=== PATIENT | male | born 1945 | race Asian ===

== ENCOUNTER 2017-01-31 15:07 | Emergency (ER) | payer OTHER ==
[~2017-01-31] VITALS: Ht 182.9 cm; Wt 69.0 kg
[~2017-01-31 15:07] MED LIST: AMLO-145 PO; ASPI325T32 PO; ATOR10TA65 PO; CLOP75TA27 PO; ESCI20TA PO; MULT1TAB73 PO; OMEG500C PO; OMEP40CA6 PO; RAMI2.5C36 PO; RIVA3CAP3 PO; SENN-8 PO; [UNRECOGNIZED DRUG - CODE] PO
[2017-01-31 15:09] VITALS: Ht 182.9 cm; Wt 69.0 kg
[2017-01-31] MEDS ORDERED: ACYC800T57 PO (15:31)
[2017-01-31] MEDS ORDERED: PRED20TA PO (15:31)
[2017-01-31] MEDS ORDERED: TETR15DR12 OP (15:32)
--- NOTE | 2017-01-31 17:38 | ERA ---
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 Patient states that this feels like Lopez's palsy. Patient has not taken any medication to relieve the symptoms. Patient and historian deny any weakness, altered mental status, change in behavior, change in speech, headache, dizziness, fever or meningismus symptoms. Denies diabetes or history of herpes zoster. Nursing notes and other documents have been reviewed and are consistent with the history given. Vaccination status is up-to-date. ROS All systems reviewed and are negative except as per history of present illness. Medications Home Meds Active Scripts Tetrahydrozoline Hcl/Peg's (Eye Drops Moisturizing Rlf) 15 Ml Drops, 15 ML OP Q4 for 28 Days, #1 BOTTLE Prov:J LUIS MCCULLOUGH PA-C 01/31/17 Prednisone* (Prednisone*) 20 Mg Tab, 60 MG PO DAILY for 4 Days, TAB Prov:J LUIS MCCULLOUGH PA-C 01/31/17 Acyclovir* (Zovirax*) 800 Mg Tablet, 800 MG PO 5 TIMES DAILY for 7 Days, TAB Prov:J LUIS MCCULLOUGH PA-C 01/31/17 Reported Medications Atorvastatin Calcium (Atorvastatin Calcium) 10 Mg Tab, 80 MG PO DAILY, TAB 12/08/13 Multivitamins (Daily Vitamin Formula) 1 Udtab Tablet, 1 UDTAB PO DAILY 12/08/13 Clopidogrel Bisulfate (Clopidogrel) 75 Mg Tablet, 75 MG PO DAILY 12/08/13 [place]-3 Fatty Acids (Fish Oil) 500 Mg Capsule.dr, 1000 MG PO DAILY 12/08/13 Omeprazole* (Omeprazole*) 40 Mg Capsule.dr, 20 MG PO DAILY 12/08/13 Aspirin* (Aspirin* EC) 325 Mg Tab, 325 MG PO 04/20/13 Escitalopram Oxalate* (Lexapro*) 20 Mg Tablet, 20 MG PO DAILY 04/20/13 Sennosides/Docusate Sodium* (Senna S*) 1 Tab Tablet, 1 TAB PO DAILY 04/04/13 Multivit, Iron, Min #5, Fa (Strovite Forte Caplet) 1 Tab Tablet, 1 TAB PO DAILY 04/04/13 Ramipril (Ramipril) 2.5 Mg Capsule, 2.5 MG PO DAILY 04/04/13 Rivastigmine Tartrate* (Rivastigmine Tartrate*) 3 Mg Capsule, 3 MG PO DAILY 04/04/13 Amlodipine Besylate* (Amlodipine Besylate*) 5 Mg Tablet, 5 MG PO DAILY 04/04/13 Allergies Allergies: Coded Allergies: No Known Allergy (Unverified , 12/08/13) PMhx/Soc History of Surgery: No Anesthesia Reaction: No Hx Neurological Disorder: Yes (dementia) Hx Respiratory Disorders: No Hx Cardiac Disorders: Yes (HTN, CVA, high cholesterol) Hx Psychiatric Problems: Yes (depression) Hx Miscellaneous Medical Probl: No Hx Alcohol Use: Yes (1 SHOT WHISKEY/ DAY) Hx Substance Use: No Hx Tobacco Use: No Physical Exam Vitals Vital Signs Date Time Temp Pulse Resp B/P Pulse Ox O2 Delivery O2 Flow Rate FiO2 01/31/17 15:09 99.3 81 18 119/72 98 Physical Exam Const: Healthy-appearing. Well-nourished. Well-developed. No acute distress. Head: Atraumatic. Patient is unable to move left side of the face. Raising forehead results and no wrinkling on the left side most consistent with Lopez's palsy. Sensation of skin intact bilaterally with no numbness or changes in feeling with right versus left. Eyes: No nystagmus. Non-injected; No scleral erythema, discharge or foreign body. EOMI and MIKHAIL bilaterally. Ears: Normal External Ears, EACs clear, TM normal bilaterally without erythema. Nose: Normal nose without discharge, septal deviation, or sinus tenderness. Oral: Tongue stick straight out without deviation. No uvula deviation. No oral edema visualized. Mucous membranes moist and pink. Neck: No cervical lymphadenopathy, masses or goiter palpated. Full range of motion. Supple. Trachea midline. ~ No meningismus. Pulm: Good air movement in upper and lower respiratory tracts. No dyspnea, stridor, tripoding or drooling. Clear to auscultation bilaterally. Percussion unremarkable in all lung [place] bilaterally. Cardio: Regular rate and rhythm; No murmurs, gallops or rubs auscultated. No JVD grossly observed. Radial and posterior tibial pulses 2+ bilaterally. No cyanosis. Capillary refill less than 2 seconds. Abd: Soft, non tender, non distended. No guarding, masses. Normal bowel sounds. No McBurney's point tenderness. MS: Normal motor strength, normal tone with gross examination. Skin: No petechiae or rashes. No ulcer, induration, jaundice. Good turgor. Back: No midline, flank or CVA tenderness. Ext: Strength equal bilaterally in upper and lower extremities. Software Lead strength equal and adequate bilaterally. No cyanosis, or edema. Normal movement of all extremities grossly observed. Neur: Sensation and motor intact bilaterally upper and lower extremities. No slurring of speech noted. Ambulation within normal limits. Awake, alert and oriented x3. Neurovascularly intact bilaterally. Psych: Active and alert. Normal Mood and Affect. Oriented x3. 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 The patient's forehead was not able to wrinkle with eyebrows being raised. There is no weakness, vertigo, ataxia, nystagmus, tremor, slurred speech, or dysdiadochokinesia. Able to do heel to steinberg, ambulating normally and other musculoskeletal and neuro findings as described in the physical examination. At this time I very little suspicion for bacterial involvement, stroke, or other intracranial pathologies. Patient' s vitals are stable and he will be discharged at this time with the following medications: Acyclovir 800 mg 5 times daily, prednisone 4 days and eyedrops. Patient has been advised to take shot at night to avoid excessive dryness and use the eyedrops as directed. Patient is also been advised to follow-up with family practitioner within the next 4 days for reevaluation and possible referral to a specialist and possible continuation of oral steroids. The patient has verbally responded that he understands his current condition and the plan of management. Departure Diagnosis: Primary Impression: Lopez's palsy Additional Impression: Numbness Condition: Stable Patient Instructions: Lopez's Palsy Referrals: RANDAL BARRIENTOS Additional Instructions: Follow up with your PCP within the next 1-3 days for a more thorough evaluation and a possible referral to a specialist. Return the the emergency department immediately if symptoms worsen or change. If you have any questions regarding medications, ask your pharmacist or us before you leave. If any adverse reactions occur while taking your medications, discontinue the treatment and return to the emergency department immediately. Take your medications as directed, and complete the entire course of treatment. Use eyedrops as needed for dryness. Make sure to tape eye at night if unable to close. J LUIS MCCULLOUGH PA-C Jan 31, 2017 16:42
== END 2017-01-31 15:34 | disposition home or self-care (01) ==
LOC: E/R 15:07
DX: G51.0 Bell's palsy (principal); I10 Essential (primary) hypertension; Z79.82 Long term (current) use of aspirin
CPT/HCPCS: 99284

== ENCOUNTER → 2018-06-18 | Emergency (ER) | END | disposition home or self-care (01) ==